=== PATIENT | male | born 1940 | race Caucasian/White ===

== ENCOUNTER → 2019-08-02 09:45 | Outpatient (CLI) | payer MEDICARE, SELFPAY ==
[2019-08-02 10:54] LABS: Hematocrit 51.5 % (41-53); Platelet Count 157 X10^3/uL (150-400)
[2019-08-02 10:59] LABS: Prothrombin Time 23.2 SECONDS (10.1-12.7)
[2019-08-02 12:07] VITALS: BP 153/89; PULSE 74; RESP 16; TEMP 36; O2SAT 97; BMI 37.5
--- NOTE | 2019-08-02 15:10 | SUR.PREOP ---
[id number] Radiologist came to discuss INR with patient, procedure cancelled to to INR. IV discontinued. Patient dressed independently. Spouse present.
== END ==
LOC: OR 10:01 → LAB 08-24 08:11
PROVIDERS: PCP Student in an Organized Health Care Education/Training Program; Referring Provider Orthopaedic Surgery; Visit Provider Student in an Organized Health Care Education/Training Program
DX: Z01.812 Encounter for preprocedural laboratory examination (principal)
CPT/HCPCS: 36415; 85014; 85049; 85610

== ENCOUNTER → 2022-01-28 09:37 | Outpatient (CLI) | payer MEDICARE, BC, SELFPAY ==
[2022-01-28 10:26] LABS: COVID19 -Nasal RAPID Negative (Negative)
== END ==
PROVIDERS: PCP Student in an Organized Health Care Education/Training Program; Referring Provider Internal Medicine; Visit Provider Internal Medicine
DX: Z20.822 Contact with and (suspected) exposure to COVID-19 (principal)
CPT/HCPCS: 87635; C9803

== ENCOUNTER → 2022-01-28 11:26 | Outpatient (CLI) | payer MEDICARE, BC, SELFPAY ==
--- NOTE | 2022-02-06 10:19 | PM.PFT.1 ---
Pulmonary Function Test Referral & Results Date Patient Seen: 01/28/22 Requesting provider: Matt Rubi Results: The spirometry demonstrates an FVC of 2.04 L which is 56% of predicted. The FEV1 was measured at 1.48 L which is 58% of predicted. The FEV1/FVC ratio was 72 which is 102% of predicted. Following the administration of bronchodilator there was no notable change. Lung volumes show an SVC of 2.04 L which is 50% of predicted. The diffusing capacity was measured at 21.59 which is 72% of predicted. No hemoglobin value was provided, so no correction for potential anemia could be made, if appropriate. The maximum voluntary ventilation was reduced Interpretation: This study demonstrates moderate obstructive lung disease based on reduction FEV1 although FEV1/FVC ratio is preserved. There is no evidence of benefit following bronchodilator There is moderately severe restrictive lung disease present based on reduction SVC which may well explain the abnormality of the FEV1 above, least in part There is a minimal reduction diffusing capacity suggesting element of disease at the capillary alveolar level as well Clinical correlation suggested
== END ==
PROVIDERS: PCP Student in an Organized Health Care Education/Training Program; Referring Provider Student in an Organized Health Care Education/Training Program; Visit Provider Student in an Organized Health Care Education/Training Program
DX: J45.41 Moderate persistent asthma with (acute) exacerbation (principal); Z20.822 Contact with and (suspected) exposure to COVID-19; J98.8 Other specified respiratory disorders
CPT/HCPCS: 87635; 94060; 94726; 94729; C9803